=== PATIENT | male | born 1965 | race Caucasian/White ===

== ENCOUNTER 2022-10-31 16:46 | Emergency (ER) | payer MEDICAID, SELFPAY ==
[~2022-10-31] VITALS: Ht 180.3 cm; Wt 80.9 kg
[2022-10-31 16:47] VITALS: BP 119/65; TEMP 98.5; O2SAT 95
[2022-10-31 17:52] LABS: VENOUS BASE EXCESS 1.2 (-2.0-2.0); VENOUS HCO3 28.1 MMOL/L (23.0-27.0); VENOUS O2 SATURATION 75.6 % (60.0-80.0); VENOUS PARTIAL PRESSURE CO2 53.1 mmHg (38.0-50.0); VENOUS PARTIAL PRESSURE O2 43.7 mmHg (30.0-50.0); VENOUS PH 7.341 UNITS (7.330-7.430); VENOUS TOTAL CO2 29.7 MMOL/L (24.0-28.0)
[2022-10-31 17:59] LABS: BASO % 0.5 % (0.0-1.0); EOS % 0.3 % (0.0-3.0); HEMATOCRIT 37.7 % (42.0-52.0); HEMOGLOBIN 13.8 g/dl (13.5-17.5); LYMPH # 1.9 10^3/uL (1.5-5.0); LYMPH % 31.7 % (24.0-44.0); MEAN CORPUSCULAR VOLUME 90.2 fl (80.0-96.0); MONO # 0.7 10^3/uL (0.0-0.8); MONO % 11.1 % (2.0-8.0); NEUTROPHILS # 3.3 10^3/uL (1.5-8.5); NEUTROPHILS % 56.1 % (36.0-66.0); PLATELET COUNT, AUTOMATED 335 10^3/uL (150-450); RED BLOOD COUNT 4.18 10^6/uL (4.30-6.10); WHITE BLOOD COUNT 5.9 10^3/uL (4.0-10.0)
[2022-10-31 18:15] LABS: MEAN CORPUSCULAR HGB CONC 36.6 g/dl (32.0-36.5)
[2022-10-31 18:22] LABS: ACETAMINOPHEN LEVEL < 2.0 UG/ML (10.0-20.0); SALICYLATE LEVEL < 3.0 MG/DL (<30)
[2022-10-31 18:25] LABS: THYROID STIMULATING HORMONE 0.828 uIU/ML (0.55-4.78)
[2022-10-31 18:28] LABS: ALBUMIN 3.5 G/DL (3.2-5.2); ALKALINE PHOSPHATASE 94 U/L (46-116); ALT/SGPT 125 U/L (7.0-40); AST/SGOT 126 U/L (<34); BILIRUBIN,DIRECT 0.2 MG/DL (<0.4); BILIRUBIN,TOTAL 0.3 MG/DL (0.3-1.2); BLOOD UREA NITROGEN < 5 MG/DL (9-23); CALCIUM LEVEL 8.4 MG/DL (8.5-10.1); CARBON DIOXIDE LEVEL 27 MMOL/L (20-31); CHLORIDE LEVEL 88 MMOL/L (98-107); CREATININE FOR GFR 0.45 MG/DL (0.70-1.30); GLOMERULAR FILTRATION RATE > 60.0 (>56); GLUCOSE, FASTING 117 MG/DL (60-100); POTASSIUM SERUM 3.7 MMOL/L (3.5-5.1); SODIUM LEVEL 124 MMOL/L (136-145); TOTAL PROTEIN 6.6 G/DL (5.7-8.2)
[2022-10-31 18:29] LABS: OSMOLALITY SERUM 338 MOSM/KG (275-295)
[2022-10-31] MEDS ORDERED: THIAMINE 200MG 2ML VIAL IM ONE (18:30)
[2022-10-31] MEDS ORDERED: NS 1,000 ML IV SCH (18:30)
[2022-10-31] MEDS ORDERED: LORazepam 2 MG TAB PO PRN (18:45)
[2022-10-31 18:55] LABS: FREE T4 1.17 NG/DL (0.89-1.76)
[2022-10-31 19:07] LABS: ETHYL ALCOHOL (ETHANOL) 0.359 % (0.000-0.010)
[2022-10-31 19:18] LABS: MAGNESIUM LEVEL 1.5 MG/DL (1.8-2.4)
[2022-10-31 19:30] LABS: OSMOLALITY URINE 145 MOSM/KG (50-1400)
[2022-10-31 19:38] LABS: CREATININE,RANDOM URINE 19.7 MG/DL
[2022-10-31 19:45] LABS: SODIUM,RANDOM URINE < 10 MMOL/L
== END 2022-10-31 20:02 | disposition short-term general hospital (02) ==
LOC: M ED 16:46
DX: F10.129 Alcohol abuse with intoxication, unspecified (principal); E87.1 Hypo-osmolality and hyponatremia; I44.4 Left anterior fascicular block; I25.2 Old myocardial infarction; F17.200 Nicotine dependence, unspecified, uncomplicated; F12.10 Cannabis abuse, uncomplicated; F10.10 Alcohol abuse, uncomplicated